=== PATIENT | female | born 1960 | race Caucasian/White ===

== ENCOUNTER 2023-04-02 10:32 | Inpatient (IN) | payer MEDICARE, MEDICAID ==
[~2023-04-02] VITALS: Ht 157 cm; Wt 64.6 kg
--- NOTE | 2023-04-02 10:56 | ED General ---
General Chief Complaint: Cardiac/General Problems Stated Complaint: FLUCTUATING PULSES Nursing Triage Note: ARRIVED VIA WC FROM [facility]. CONCERNS WITH PULSE WILL GO FROM THE 40-70'S. RECENT ADMIT TO [facility] FOR SEPSIS. Source of Information: Patient, Fdc Records, Other ([facility] attendant) Exam Limitations: Physical Impairments History of Present Illness Date Seen by Provider: Apr 02, 2023 Time Seen by Provider: 10:48 Initial Comments Here with senior care manager who reports that the patient was admitted at [facility] last week from approximately Monday to Monday. She is admitted for concerns for sepsis and low temperature. Later they thought that this was not s epsis. platform attendant is worried because patient's heart rate has fluctuated between 40s and 70s and she feels cool to the touch. She appears weaker than normal although better now than she was earlier last week. She is a resident of [facility]. She is currently on Bactrim DS for question of urinary tract infection. She was having some urinary tract problems and was started on b ethanechol and tamsulosin and those are new meds for her. She has an extensive medication list. Patient is nonverbal due to MR. She is certainly moving her upper extremities well and it is picking at the blood pressure cuff and pulse oximeter lungs., Fever, breathing problems or other visual findings of pain per care worker. Timing/Duration: 1 Week, Changing Over Time, Getting Worse Severity: Moderate Associated Systoms: No Cough, No Nausea/Vomiting, No Shortness of Air Allergies and Home Medications Allergies Coded Allergies: No Known Drug Allergies (Unverified , 04/02/23) Patient Home Medication List Home Medication List Reviewed: Yes Review of Systems Review of Systems Constitutional: see HPI Review of systems limited due to patient's MR status and symptoms noted per care worker Past Rkufrwf-Moorhn-Wdlpnp Hx Patient Social History Tobacco Use?: No Substance use?: No Alcohol Use?: No Past Medical History Surgeries: Yes Abdominal (PEG tube) Respiratory: Yes Pneumonia Cardiac: Yes Coronary Artery Disease, Hypertension, Irregular Heartbeat Neurological: Yes (Rett syndrome) Genitourinary: Yes UTI-Chronic Gastrointestinal: Yes Gastroesophageal Reflux, Pancreatitis, Hepatitis, Ulcer Anxiety Integumentary: Yes (Plantar warts of the foot, onychomycosis) Psoriasis Family Medical History Reviewed and Corrections made No Pertinent Family Hx Physical Exam-Suspected Sepsis Physical Exam Vital Signs Vital Signs - First Documented 04/02/23 10:41 Temp 31.8 Pulse 56 Resp 16 B/P (MAP) 94/63 (73) Pulse Ox 96 O2 Delivery Room Air Capillary Refill : Less Than 3 Seconds Blood Pressure Mean: 73 Height, Weight, BMI Height: '" Weight: lbs. oz. kg; 27.00 BMI Method: General Appearance: No Apparent Distress, Other (Picking at lines. Bruising noted to the left side of the face) HEENT: PERRL/EOMI, Pharynx Normal Neck: Non Tender, Supple Respiratory: Lungs Clear, Normal Breath Sounds Cardiovascular: No Murmur, Bradycardia Gastrointestinal: Non Tender, Soft Back: Normal Inspection, No CVA Tenderness, No Vertebral Tenderness Extremity: Normal Range of Motion, Non Tender Neurologic/Psychiatric: Alert, Other (Weak for senior care manager but a little better than last week) Skin: cool, ecchymosis (Side of face), pallor Focused Exam Lactate Level 04/02/23 10:55: Lactic Acid Level 1.64 Lactic Acid Level Laboratory Tests Test 04/02/23 10:55 Lactic Acid Level 1.64 MMOL/L (0.50-2.00) Progress/Results/Core Measures Suspected Sepsis SIRS Temperature: Pulse: 56 Respiratory Rate: 16 Laboratory Tests 04/02/23 10:55: White Blood Count 2.9L Blood Pressure 94 /63 Mean: 73 04/02/23 10:55: Lactic Acid Level 1.64 Laboratory Tests 04/02/23 10:55: Creatinine 0.80, INR Comment 1.0, Platelet Count 123L, Total Bilirubin 0.2 Results/Orders Lab Results Laboratory Tests Test 04/02/23 10:55 04/02/23 11:08 Range/Units White Blood Count 2.9 L 4.3-11.0 10^3/uL Red Blood Count 3.11 L 3.80-5.11 10^6/uL Hemoglobin 10.0 L 11.5-16.0 g/dL Hematocrit 31 L 35-52 % Mean Corpuscular Volume 100 H 80-99 fL Mean Corpuscular Hemoglobin 32 25-34 pg Mean Corpuscular Hemoglobin Concent 32 32-36 g/dL Red Cell Distribution Width 14.0 10.0-14.5 % Platelet Count 123 L 130-400 10^3/uL Mean Platelet Volume 11.6 9.0-12.2 fL Immature Granulocyte % (Auto) 1 % Neutrophils (%) (Auto) 56 42-75 % Lymphocytes (%) (Auto) 31 12-44 % Monocytes (%) (Auto) 10 0-12 % Eosinophils (%) (Auto) 2 0-10 % Basophils (%) (Auto) 0 0-10 % Neutrophils # (Auto) 1.6 L 1.8-7.8 10^3/uL Lymphocytes # (Auto) 0.9 L 1.0-4.0 10^3/uL Monocytes # (Auto) 0.3 0.0-1.0 10^3/uL Eosinophils # (Auto) 0.1 0.0-0.3 10^3/uL Basophils # (Auto) 0.0 0.0-0.1 10^3/uL Immature Granulocyte # (Auto) 0.0 0.0-0.1 10^3/uL Percent Immature Platelet Fraction 9.4 H 0.0-7.6 % Prothrombin Time 12.9 12.2-14.7 SEC INR Comment 1.0 0.8-1.4 Activated Partial Thromboplast Time 39 H 24-35 SEC Sodium Level 136 135-145 MMOL/L Potassium Level 4.5 3.6-5.0 MMOL/L Chloride Level 102 98-107 MMOL/L Carbon Dioxide Level 25 21-32 MMOL/L Anion Gap 9 5-14 MMOL/L Blood Urea Nitrogen 23 H 7-18 MG/DL Creatinine 0.80 0.60-1.30 MG/DL Estimat Glomerular Filtration Rate 84 BUN/Creatinine Ratio 29 Glucose Level 97 70-105 MG/DL Lactic Acid Level 1.64 0.50-2.00 MMOL/L Calcium Level 10.5 H 8.5-10.1 MG/DL Corrected Calcium 10.7 H 8.5-10.1 MG/DL Magnesium Level 2.1 1.6-2.4 MG/DL Total Bilirubin 0.2 0.1-1.0 MG/DL Aspartate Amino Transf (AST/SGOT) 90 H 5-34 U/L Alanine Aminotransferase (ALT/SGPT) 103 H 0-55 U/L Alkaline Phosphatase 238 H 40-136 U/L C-Reactive Protein High Sensitivity 3.92 H 0.00-0.50 MG/DL Total Protein 7.6 6.4-8.2 GM/DL Albumin 3.7 3.2-4.5 GM/DL Urine Color YELLOW Urine Clarity CLEAR Urine pH 6.0 5-9 Urine Specific Ehrenberg 1.015 L 1.016-1.022 Urine Protein NEGATIVE NEGATIVE Urine Glucose (UA) NEGATIVE NEGATIVE Urine Ketones NEGATIVE NEGATIVE Urine Nitrite NEGATIVE NEGATIVE Urine Bilirubin NEGATIVE NEGATIVE Urine Urobilinogen 0.2 < = 1.0 MG/DL Urine Leukocyte Esterase 1+ H NEGATIVE Urine RBC (Auto) TRACE H NEGATIVE Urine RBC 0-2 /HPF Urine WBC 10-25 H /HPF Urine Squamous Epithelial Cells 0-2 /HPF Urine Crystals NONE /LPF Urine Bacteria LARGE H /HPF Urine Casts NONE /LPF Urine Mucus NEGATIVE /LPF Urine Culture Indicated CULTURE PENDING My Orders Orders - SAURABH PLEITEZ MD Cbc With Automated Diff (04/02/23 10:53) Comprehensive Metabolic Panel (04/02/23 10:53) Blood Culture (04/02/23 10:53) Sputum Culture (04/02/23 10:53) Urinalysis (04/02/23 10:53) Urine Culture (04/02/23 10:53) Protime With Inr (04/02/23 10:53) Partial Thromboplastin Time (04/02/23 10:53) Chest 1 View, Ap/Pa Only (04/02/23 10:53) Ed Iv/Invasive Line Start (04/02/23 10:53) Vital Signs Adult Sepsis Patie Q15M (04/02/23 10:53) O2 (04/02/23 10:53) Remove Rings In Anticipation O (04/02/23 10:53) Lactic Acid Analyzer (04/02/23 10:53) Straight Cath For Spec.-Adult (04/02/23 10:53) Hs C Reactive Protein (04/02/23 10:53) Magnesium (04/02/23 10:53) Ns Iv 1000 Ml (Ns Iv 1000 Ml) (04/02/23 11:15) Meropenem Injection (Meropenem Injecti (04/02/23 12:15) Vancomycin Injection (Vancomycin Injecti (04/02/23 12:15) Vancomycin Injection (Vancomycin Injecti (04/02/23 13:15) Medications Given in ED Current Medications Medications Dose Ordered Sig/Karen Route Start Time Stop Time Status Last Admin Dose Admin Sodium Chloride 1,000 ml @ 0 mls/hr Q0M ONCE IV 04/02/23 11:15 04/02/23 11:16 DC 04/02/23 11:34 1,000 MLS/HR Vital Signs/I&O 04/02/23 10:41 Temp 31.8 Pulse 56 Resp 16 B/P (MAP) 94/63 (73) Pulse Ox 96 O2 Delivery Room Air Capillary Refill : Less Than 3 Seconds Blood Pressure Mean: 73 Progress Note : Progress Note Seen and evaluated. Patient's temperature noted to be 89 F. We will initiate sepsis protocol including IV, labs including CBC, CMP, CRP, blood cultures and lactic acid as well as coags. We will get UA via Cardozo catheter and placed temperature-sensing device in rectum and apply Chacho hugger. Normal saline 1 L bolus warm ordered.. Differential diagnosis includes sepsis, UTI, medication effect, electrolyte abnormality, dehydration 039: Chest x-ray reviewed and shows no obvious infiltrate on my interpretation. See radiology report for details. CBC reviewed and shows white count low at 2.9 and platelets slightly low at 123 with slightly low hemoglobin at 10. Coags show slightly elevated PTT. Chemistry shows grossly normal electrolytes except calcium is slightly elevated. LFTs are elevated and patient does have history of hepatitis. CRP is elevated at 3.3 and magnesium is normal. UA does show 10- 25 whites with large bacteria on Cardozo catheter sample. Lactic acid is negative at 1.64. Blood pressure remains reasonable at 110/64. Given patient's temperature, admission is indicated and this may be urinary tract infection and mixed medication effect. We will continue IV fluids and initiate admission proceedings. Monitor patient. 1155: I did [facility] the [facility] She accepts patient for admission to the ICU, inpatient status. We will initiate meropenem 500 mg IV and vancomycin weight- based dosing now and she will continue that in the ICU. Patient's temperature is, up to 32 C with Chacho hugger now. She is receiving her liter of fluid and blood pressure is currently 111/61. I did discuss with senior care manager who agrees. Admit, inpatient status. platform attendant agrees to plan. He did bring tube feeding supplies and initial feed. Patient does have findings for UTI there are some findings of sepsis but she does not have severe sepsis or septic shock and does not require high-volume fluid resuscitation at this time and does have history of CHF. Diagnostic Imaging Diagonstic Imaging: Xray Plain Films/CT/US/NM/MRI: chest Comments [facility] [place], [place] NAME: VANDANA FLEMING [facility] REC#: [id number] PT STATUS: REG ER : 1960 PHYSICIAN: SAURABH PLEITEZ MD ADMIT DATE: 04/02/23/ER Draft Date of Exam:04/02/23 CHEST 1 VIEW, AP/PA ONLY EXAMINATION: Chest 1 view HISTORY: Hypothermia, weak COMPARISON: None available. FINDINGS: There is mild left base atelectasis. Otherwise, the lungs are clear without edema or pneumonia. No pleural effusion or pneumothorax. Heart size is normal. IMPRESSION: 1. Mild atelectasis, otherwise clear lungs. Dictated on workstation # [id number] Dict: 04/02/23 1127 Trans: 04/02/23 1128 [facility] [id number] Interpreted by: MIMA ELDER MD Electronically signed by: Departure Communication (Admissions) Time/Spoke to Admitting Phy: 11:55 Impression Primary Impression: Hypothermia Qualified Codes: T68.XXXA - Hypothermia, initial encounter Additional Impression: Urinary tract infection Qualified Codes: N30.01 - Acute cystitis with hematuria Disposition: ADMITTED INPATIENT Condition: Stable Admissions Decision to Admit Reason: Admit from ER (General) Decision to Admit/Date: Apr 02, 2023 Time/Decision to Admit Time: 11:55 Departure-Patient Inst. Referrals: BRANT FAULKNER NP (PCP) Primary Care Physician SAURABH PLEITEZ MD Apr 02, 2023 10:56
[2023-04-02] MEDS ORDERED: NS IV 1000 ML 1,000 ML IV ONE (11:15)
[2023-04-02 11:17] LABS: BILIRUBIN,URINE NEGATIVE (NEGATIVE); CLARITY,URINE CLEAR; COLOR,URINE YELLOW; GLUCOSE, URINE (UA) NEGATIVE (NEGATIVE); KETONES,URINE NEGATIVE (NEGATIVE); LEUKOCYTE ESTERASE ,URINE 1+ (NEGATIVE); NITRITE,URINE NEGATIVE (NEGATIVE); PROTEIN,URINE NEGATIVE (NEGATIVE)
[2023-04-02 11:18] LABS: MONOCYTES # (AUTO) 0.3 10^3/uL (0.0-1.0)
[2023-04-02 11:20] LABS: BASOPHILS % (AUTO) 0 % (0-10); EOSINOPHILS # (AUTO) 0.1 10^3/uL (0.0-0.3); EOSINOPHILS % (AUTO) 2 % (0-10); HEMATOCRIT 31 % (35-52); LYMPHOCYTES # (AUTO) 0.9 10^3/uL (1.0-4.0); LYMPHOCYTES % (AUTO) 31 % (12-44); MEAN CORPUSCULAR HEMOGLOBIN 32 pg (25-34); MEAN CORPUSCULAR HGB CONC 32 g/dL (32-36); MEAN CORPUSCULAR VOLUME 100 fL (80-99); MEAN PLATELET VOLUME 11.6 fL (9.0-12.2); MONOCYTES % (AUTO) 10 % (0-12); NEUTROPHILS # (AUTO) 1.6 10^3/uL (1.8-7.8); NEUTROPHILS % (AUTO) 56 % (42-75); PLATELET COUNT 123 10^3/uL (130-400); WHITE BLOOD COUNT 2.9 10^3/uL (4.3-11.0)
[2023-04-02 11:23] LABS: BACTERIA,URINE LARGE /HPF; RBC,URINE 0-2 /HPF; SQUAMOUS EPITHELIAL CELL,UR 0-2 /HPF
[2023-04-02 11:26] LABS: PROTHROMBIN TIME PATIENT 12.9 SEC (12.2-14.7)
--- NOTE | 2023-04-02 11:28 | Diagnostic Imaging Report ---
EXAMINATION: Chest 1 view HISTORY: Hypothermia, weak COMPARISON: None available. FINDINGS: There is mild left base atelectasis. Otherwise, the lungs are clear without edema or pneumonia. No pleural effusion or pneumothorax. Heart size is normal. IMPRESSION: 1. Mild atelectasis, otherwise clear lungs. Dictated by: Dictated on workstation # [id number]
[2023-04-02 11:31] LABS: ALBUMIN 3.7 GM/DL (3.2-4.5); BILIRUBIN,TOTAL 0.2 MG/DL (0.1-1.0); CALCIUM 10.5 MG/DL (8.5-10.1); CREATININE SERUM 0.8 MG/DL (0.60-1.30); MAGNESIUM 2.1 MG/DL (1.6-2.4); POTASSIUM 4.5 MMOL/L (3.6-5.0); TOTAL PROTEIN 7.6 GM/DL (6.4-8.2)
--- NOTE | 2023-04-02 12:04 | History & Physical-Hospitalist ---
History of Present Illness HPI/Chief Complaint Chief complaint: Hypothermia suspect sepsis from pneumonia and UTI HPI: This is a 62-year-old female intellectually delayed patient who receives G- tube feedings and is significantly debilitated due to disability who presented to the ER with altered mental status. Apparently she was just discharged from [facility] and was placed on empiric antibiotics and remained on Bactrim DS but UA shows 1020 WBCs and chest x-ray shows bilateral atelectasis suspicious for pneumonia so she was placed on meropenem and vancomycin and placed in the ICU with a bear hugger due to hypothermia. Source: patient Exam Limitations: no limitations Date Seen 04/02/23 Time Seen by a Provider: 12:30 Attending Physician Bonilla Maria Np PCP Admitting Physician: Attending Physician: Referring Physician Date of Admission Home Medications & Allergies Home Medications Reviewed patient Home Medication Reconciliation performed by pharmacy medication reconciliations fire protection equipment technician and/or nursing. Patients Allergies have been reviewed. Allergies Allergies Coded Allergies No Known Drug Allergies (Unverified04/02/23) Past Cmxlsbj-Ryuple-Nlqxtf Hx Patient Social History Marrital Status: single Employed/Student: unemployed Tobacco Use?: No Smoking Status: Never a Smoker Substance use?: No Alcohol Use?: No Current Status status: No Advance Directives: No Communicates: Does Not Communicate Primary Language: Maltese Preferred Spoken Language: Maltese Past Medical History Surgeries: Abdominal (PEG tube) Pneumonia Coronary Artery Disease, Hypertension, Irregular Heartbeat UTI-Chronic Gastroesophageal Reflux, Pancreatitis, Hepatitis, Ulcer Anxiety Psoriasis Family Medical History Reviewed and Corrections made No Pertinent Family Hx Review of Systems ROS-Unable to Obtain: Confusion Constitutional: see HPI, malaise Physical Exam Physical Exam Vital Signs Vital Signs - First Documented 04/02/23 10:41 Temp 31.8 Pulse 56 Resp 16 B/P (MAP) 94/63 (73) Pulse Ox 96 O2 Delivery Room Air Capillary Refill : Less Than 3 Seconds Height, Weight, BMI Height: '" Weight: lbs. oz. kg; 27.00 BMI Method: General Appearance: No Apparent Distress, Chronically ill, Obese Respiratory: No Accessory Muscle Use, No Respiratory Distress, Decreased Breath Sounds Cardiovascular: Regular Rate, Rhythm Neurologic/Psychiatric: Alert Results Results/Procedures Labs Laboratory Tests 04/02/23 10:55 Patient resulted labs reviewed. Assessment/Plan Admission Diagnosis Assessment: Hypothermia Suspicious for sepsis from UTI and bilateral pneumonia Severe intellectual delay disability Plan: ICU IV antibiotics IV fluid Supportive care ICU consult Admission Status: Inpatient Order (span 2 midnights) Reason for Inpatient Admission: hypothermia from sepsis KIRT WOODSON DO Apr 02, 2023 12:04
[2023-04-02] MEDS ORDERED: VANCOMYCIN INJECTION 750 MG in NS (IVPB) 100 ML 100 ML IV ONE (12:15)
[2023-04-02] MEDS ORDERED: MEROPENEM INJECTION 500 MG in NS (IVPB) 100 ML 100 ML IV ONE (12:15)
[2023-04-02] MEDS ORDERED: VANCOMYCIN INJECTION 500 MG in NS (IVPB) 100 ML 100 ML IV ONE (13:15)
[2023-04-02] MEDS ORDERED: CALCIUM CARBONATE 500 MG CHEW TABLET PO PRN (13:30)
[2023-04-02] MEDS ORDERED: ONDANSETRON 4 MG ORAL DISSOLVE TABLET PO PRN (13:30)
[2023-04-02] MEDS ORDERED: diphenhydrAMINE INJ 50 MG/ML VIAL IVP PRN (13:30)
[2023-04-02] MEDS ORDERED: MELATONIN 3 MG TABLET PO PRN (13:30)
[2023-04-02] MEDS ORDERED: LACTULOSE SYRUP 10GM/15ML 30ML UDC PO PRN (13:30)
[2023-04-02] MEDS ORDERED: BISACODYL 10 MG SUPPOSITORY PR PRN (13:30)
[2023-04-02] MEDS ORDERED: diphenhydrAMINE 25 MG TABLET PO PRN (13:30)
[2023-04-02] MEDS ORDERED: NS IV 500 ML 500 ML IV PRN (13:30)
[2023-04-02] MEDS ORDERED: VANCOMYCIN INJECTION 0.1 MG in NS (IVPB) 250 ML 250 ML IV SCH (13:30)
[2023-04-02] MEDS ORDERED: ANTACID SUSPENSION 30 ML UDC PO PRN (13:30)
[2023-04-02] MEDS ORDERED: oxyCODONE IMMEDIATE RELEASE 5 MG TABLET PO PRN (13:30)
[2023-04-02] MEDS ORDERED: morphine INJ 4 MG/ML 1 ML (VIAL/SYRINGE) IV PRN (13:30)
[2023-04-02] MEDS ORDERED: ONDANSETRON INJECTION 4 MG/2 ML (SDV) IV PRN (13:30)
[2023-04-02] MEDS ORDERED: MILK OF MAGNESIA 400 MG/5 ML 30 ML UDC PO PRN (13:30)
[2023-04-02] MEDS: ENOXAPARIN 40 MG/0.4 ML SYRINGE SC SCH (13:43)
[2023-04-02] MEDS: NS IV 1000 ML 1,000 ML IV SCH ×2 (13:43→21:48)
--- NOTE | 2023-04-02 14:18 | Tele-ICU Consult ---
History of Present Illness History of Present Illness Date Seen by Provider: Apr 02, 2023 Time Seen by Provider: 14:18 Date of Admission History of Present Illness (Tele-ICU Physician , consultation as per request of PCP Service provided via interactive audio and video telecommunLivrada E-CARE system to a patient admitted to ICU bed in [facility]. Available chart/ vitals / labs / Images reviewed H&P is from ER notes Patient's information available about PMH, Shx, Fhx allergy reviewed inEMR. ROS as per chart and RN report Now in ICU, hemodynamically stable Video assessment done using teleICU camera, rest of exam as per RN Discussed with RN. Hospital course: (04/02) 62F with intellectual disability admitted for UTI. Had been at [facility] for sepsis then DC on Bactrim for UTI. Caregiver concerned about fever, and HR fluctuations. Hypothermia, elevated LFT> no organ dysfunction on admit. Baseline neuro awake/alert but non verbal A/P Hypothemia - Chacho jakegger , follow closely - order TSH, and might need costisol level if reminds hypothermic Elevated LFT - ? abd exam wnl as per ER notes , ? BArctim side effect UTI suspected - WBC and + bact with minimal esterase-- on CATHETER obtaind sample , s/p recent Tx - vanco and merrem initiated in ER Anemia - mild - no active bleeding , follow PEg in place cont keppra as CLINICAL INFORMATICS PHYSICIAN doses Lines : periph , (Central Line Necessity Reviewed) Cardozo: + OG: Nutrition: Analgesia: Anxiety/ delirium VTE Prophylaxis: ever 40 Stress Ulcer Prophylaxis: Plans in collaboration with bedside consultants and IM MDs. Discussed with RN to reach out if any questions or concerns A total of 25 minutes of critical care time was devoted to this patient today, required to treat and/or prevent further deterioration of critical care condition ( as above ) . I am remotely monitoring this patient from another state. I am unable to do the bedside exam, and history/physical and pertinent information is taken from other notes in the computer and bedside staff. . Allergies and Home Medications Allergies Coded Allergies: No Known Drug Allergies (Unverified , 04/02/23) Past Medical/Social/Family Hx Patient Social History Tobacco Use?: No Substance use?: No Alcohol Use?: No Current Status status: No Advance Directives: No Communicates: Does Not Communicate Primary Language: Guamanian Preferred Spoken Language: Guamanian Review of Systems Constitutional: other Focused Exam Possible Source: Other Lactate Level 04/02/23 10:55: Lactic Acid Level 1.64 Height, Weight, BMI Height: '" Weight: lbs. oz. kg; 27.00 BMI Method: Lactic Acid Level Laboratory Tests Test 04/02/23 10:55 Lactic Acid Level 1.64 MMOL/L (0.50-2.00) Exam Exam Patient acknowledged, consented, and participated in this virtual visit which was conducted using real time audio/video Vital Signs Date Time Temp Pulse Resp B/P (MAP) Pulse Ox O2 Delivery O2 Flow Rate FiO2 04/02/23 13:46 Room Air 04/02/23 13:23 72 04/02/23 13:15 34.2 68 12 131/58 (82) Room Air 04/02/23 12:50 33.6 71 16 123/76 100 Room Air 04/02/23 10:41 31.8 56 16 94/63 (73) 96 Room Air Height & Weight Height: '" Weight: lbs. oz. kg; 27.00 BMI Method: General Appearance: No Apparent Distress, Other (Picking at lines. Bruising noted to the left side of the face) HEENT: PERRL/EOMI, Pharynx Normal Neck: Non Tender, Supple Respiratory: Lungs Clear, Normal Breath Sounds Cardiovascular: No Murmur, Bradycardia Capillary Refill: Less Than 3 Seconds Extremity: Normal Range of Motion, Non Tender Neurologic/Psychiatric: Alert, Other (Weak for day care supervisor but a little better than last week) Results Lab Laboratory Tests 04/02/23 10:55 Assessment/Plan Assessment/Plan 1 NIELS LORA MD Apr 02, 2023 14:18
[2023-04-02] MEDS: LevETIRAcetam 500 MG/ 5 ML UDC ORAL SOLN PEG SCH ×2 (15:11→20:04)
[2023-04-02 15:13] VITALS: BP 110/62
[2023-04-02] MEDS ORDERED: TMSL.4C PEG (16:32)
[2023-04-02] MEDS ORDERED: QUET200T29 GT (16:32)
[2023-04-02] MEDS ORDERED: ASPI-999 GT (16:32)
[2023-04-02] MEDS ORDERED: LORA-405 PEG (16:32)
[2023-04-02] MEDS ORDERED: ARIP2TAB20 GT (16:32)
[2023-04-02] MEDS ORDERED: TRZ50T GT (16:32)
[2023-04-02] MEDS ORDERED: LORA-405 GT ×2 (16:32)
[2023-04-02] MEDS ORDERED: MTC5V480 GT (16:32)
[2023-04-02] MEDS ORDERED: LISI20TA26 GT (16:32)
[2023-04-02] MEDS ORDERED: [UNRECOGNIZED DRUG - CODE] PEG (16:32)
[2023-04-02] MEDS ORDERED: FRSM10B60 GT (16:32)
[2023-04-02] MEDS ORDERED: TMSL.4C GT (16:32)
[2023-04-02] MEDS ORDERED: RISP1TAB93 GT (16:32)
[2023-04-02] MEDS ORDERED: TIZA-186 GT (16:32)
[2023-04-02] MEDS ORDERED: QUET50TA23 GT (16:32)
[2023-04-02] MEDS ORDERED: BETH25TA2 GT (16:32)
[2023-04-02] MEDS: inSUlin ASPART 1 UNIT/0.01 ML (PER UNIT) SC SCH ×2 (16:40→20:05)
[2023-04-02] MEDS: MEROPENEM INJECTION 500 MG in NS (IVPB) 100 ML 100 ML IV SCH ×2 (18:14→23:49)
[2023-04-02] MEDS: SENNOSIDES 8.6 MG TABLET PO SCH (20:04)
[2023-04-02] MEDS: ACETAMINOPHEN 325 MG TABLET PO PRN (20:04)
[2023-04-02] MEDS: DOCUSATE SODIUM 100 MG CAPSULE PO SCH (20:06)
[2023-04-02] MEDS ORDERED: RT-Ipratropium/Albuterol NEB 3 ML VIAL INH PRN (21:30)
[2023-04-02] MEDS: VANCOMYCIN 1 GM/NS 250 ML IVPB IV SCH ×2 (21:54)
[2023-04-03 05:02] LABS: BASOPHILS % (AUTO) 0 % (0-10); EOSINOPHILS % (AUTO) 1 % (0-10); HEMATOCRIT 31 % (35-52); HEMOGLOBIN 9.9 g/dL (11.5-16.0); LYMPHOCYTES # (AUTO) 0.9 10^3/uL (1.0-4.0); LYMPHOCYTES % (AUTO) 15 % (12-44); MEAN CORPUSCULAR HEMOGLOBIN 32 pg (25-34); MEAN CORPUSCULAR HGB CONC 32 g/dL (32-36); MEAN CORPUSCULAR VOLUME 100 fL (80-99); MEAN PLATELET VOLUME 11.3 fL (9.0-12.2); MONOCYTES # (AUTO) 0.5 10^3/uL (0.0-1.0); MONOCYTES % (AUTO) 9 % (0-12); NEUTROPHILS # (AUTO) 4.6 10^3/uL (1.8-7.8); NEUTROPHILS % (AUTO) 76 % (42-75); PLATELET COUNT 156 10^3/uL (130-400); WHITE BLOOD COUNT 6.1 10^3/uL (4.3-11.0)
[2023-04-03] MEDS: NS IV 1000 ML 1,000 ML IV SCH (05:08)
[2023-04-03 05:25] LABS: ALBUMIN 3.5 GM/DL (3.2-4.5); BILIRUBIN,TOTAL 0.2 MG/DL (0.1-1.0); CALCIUM 9.7 MG/DL (8.5-10.1); CREATININE SERUM 0.82 MG/DL (0.60-1.30); MAGNESIUM 1.9 MG/DL (1.6-2.4); PHOSPHORUS 2.7 MG/DL (2.3-4.7); POTASSIUM 5.4 MMOL/L (3.6-5.0); TOTAL PROTEIN 7.2 GM/DL (6.4-8.2)
[2023-04-03] MEDS: inSUlin ASPART 1 UNIT/0.01 ML (PER UNIT) SC SCH ×4 (05:43→21:00)
[2023-04-03] MEDS: MAGNESIUM 1 GM/100 ML IVPB 100 ML IV SCH (05:53)
[2023-04-03] MEDS: MEROPENEM INJECTION 500 MG in NS (IVPB) 100 ML 100 ML IV SCH ×3 (05:54→17:52)
[2023-04-03] MEDS ORDERED: POTASSIUM CHLORIDE 20 MEQ TABLET PO SCH (06:00)
[2023-04-03] MEDS ORDERED: POTASSIUM CL 10MEQ/50ML IVPB 50 ML IV SCH (06:00)
[2023-04-03] MEDS ORDERED: MAGNESIUM 1 GM/100 ML IVPB 100 ML IV SCH (06:00)
--- NOTE | 2023-04-03 07:08 | Progress Note - Hospitalist ---
Subjective HPI/CC On Admission Date Seen by Provider: Apr 03, 2023 Time Seen by Provider: 10:00 Chief complaint: Hypothermia suspect sepsis from pneumonia and UTI HPI: This is a 62-year-old female intellectually delayed patient who receives G- tube feedings and is significantly debilitated due to disability who presented t o the ER with altered mental status. Apparently she was just discharged from [facility] and was placed on empiric antibiotics and remained on Bactrim DS but UA shows 1020 WBCs and chest x-ray shows bilateral atelectasis suspicious for pneumonia so she was placed on meropenem and vancomycin and placed in the ICU with a bear hugger due to hypothermia. Subjective/Events-last exam Much improved status No hypothermia CXR reviewed NO falls TF tolerated Move to 4th Focused Exam Lactate Level 04/02/23 10:55: Lactic Acid Level 1.64 Objective Exam Vital Signs Vital Signs Date Time Temp Pulse Resp B/P (MAP) Pulse Ox O2 Delivery O2 Flow Rate FiO2 04/03/23 15:36 37.4 04/03/23 15:00 80 30 142/71 (94) 94 Room Air 04/03/23 08:11 2.00 Capillary Refill : Less Than 3 Seconds General Appearance: No Apparent Distress, WD/WN, Chronically ill, Other (severe MR) Respiratory: Lungs Clear, Normal Breath Sounds, Decreased Breath Sounds Cardiovascular: Regular Rate, Rhythm Neurologic/Psychiatric: Alert Results/Procedures Lab Laboratory Tests 04/03/23 04:12 Patient resulted labs reviewed. Assessment/Plan Assessment and Plan Assess & Plan/Chief Complaint Assessment: Hypothermia Suspicious for sepsis from UTI and bilateral pneumonia Severe intellectual delay disability Plan: Move to 4th IV antibiotics IV fluid Supportive care KIRT WOODSON DO Apr 03, 2023 07:08
[2023-04-03] MEDS: RT-Ipratropium/Albuterol NEB 3 ML VIAL INH SCH ×2 (08:11→19:19)
[2023-04-03] MEDS: SENNOSIDES 8.6 MG TABLET PO SCH ×2 (08:53→20:11)
[2023-04-03] MEDS: DOCUSATE SODIUM 100 MG CAPSULE PO SCH ×2 (08:53→20:10)
[2023-04-03] MEDS: LevETIRAcetam 500 MG/ 5 ML UDC ORAL SOLN PEG SCH ×3 (08:54→20:11)
--- NOTE | 2023-04-03 09:51 | Tele-ICU Progress Note ---
Subjective Date Seen by a Provider: Apr 03, 2023 Time Seen by a Provider: 09:50 Subjective/Events-last exam (Tele-ICU Physician , Progress Note ) Service provided via interactive audio and video telecommunications E-CARE system to a patient admitted to ICU bed in [facility]. Patient is seen today due to persistent need of ICU care Available chart/ vitals / labs / Images reviewed Video assessment done using teleICU camera, rest of exam as per RN Discussed with RN Events overnight : Afebrile hemodynamically stable Respiratory - I/O = neg Drips: ns Pressors- no Hospital course: (04/02) 62F with intellectual disability admitted for UTI. Had been at [facility] for sepsis then DC on Bactrim for UTI. Caregiver concerned about fever, and HR fluctuations. Hypothermia, elevated LFT> no organ dysfunction on admit. Baseline neuro awake/alert but non verbal A/P Hypothemia - Chacho baker , follow closely - hypothyroid with TSH =10 - future w/up and tx as per PCP . and might need costisol level if reminds hypothermic Elevated LFT - ? abd exam wnl as per ER notes , ? BArctim side effect - stable today UTI suspected - WBC and + bact with minimal esterase-- on CATHETER obtaind sample , s/p recent Tx - vanco and merrem initiated in ER - E-coli + SENS PENDING Anemia - mild - no active bleeding , follow PEG in place cont keppra as [employer] doses Lines : periph , (Central Line Necessity Reviewed) [place]ozo: + OG: Nutrition: Analgesia: Anxiety/ delirium VTE Prophylaxis: ever 40 Stress Ulcer Prophylaxis: Plans in collaboration with bedside consultants and IM MDs. Discussed with RN to reach out if any questions or concerns A total of 25 minutes of critical care time was devoted to this patient today, required to treat and/or prevent further deterioration of critical care condition ( as above ) . I am remotely monitoring this patient from another state. I am unable to do the bedside exam, and history/physical and pertinent information is taken from other notes in the computer and bedside staff. . Sepsis Event Evaluation Height, Weight, BMI Height: '" Weight: lbs. oz. kg; 27.58 BMI Method: Focused Exam Lactate Level 04/02/23 10:55: Lactic Acid Level 1.64 Exam Exam Patient acknowledged, consented, and participated in this virtual visit which was conducted using real time audio/video Vital Signs Date Time Temp Pulse Resp B/P (MAP) Pulse Ox O2 Delivery O2 Flow Rate FiO2 04/03/23 09:00 37.2 82 22 147/83 (104) 97 Room Air 04/03/23 08:11 96 Nasal Cannula 2.00 04/03/23 08:00 37.2 89 20 142/70 (94) 97 Room Air 04/03/23 07:09 85 04/03/23 07:00 37.2 89 17 164/90 (114) 95 Room Air 04/03/23 06:45 37.2 84 15 131/80 (99) 98 Room Air 04/03/23 06:30 37.1 81 15 128/64 (91) 98 Room Air 04/03/23 06:15 37.1 87 18 116/62 (71) 97 Room Air 04/03/23 06:00 37 86 20 124/62 (74) 97 Room Air 04/03/23 05:45 37 89 14 124/74 (107) 98 Room Air 04/03/23 05:30 37 84 18 146/76 (99) 97 Room Air 04/03/23 05:15 37.1 91 21 149/81 (99) 97 Room Air 04/03/23 05:00 37.1 84 10 138/73 (111) 98 Room Air 04/03/23 04:45 37.0 84 11 132/81 (107) 97 Room Air 04/03/23 04:30 37.1 84 17 140/74 (88) 98 Room Air 04/03/23 04:16 Room Air 04/03/23 04:15 37.1 86 19 132/71 (99) 97 Room Air 04/03/23 04:00 37.1 86 18 129/77 (93) 97 Room Air 04/03/23 03:45 37.1 85 19 128/82 (99) 96 Room Air 04/03/23 03:30 37.1 90 24 125/75 (94) 96 Room Air 04/03/23 03:15 37.1 92 20 122/73 (91) 94 Room Air 04/03/23 03:00 37.1 89 20 129/73 (99) 94 Room Air 04/03/23 02:45 37.2 92 35 129/77 (98) 96 Room Air 04/03/23 02:30 37.1 91 15 132/78 (106) 95 Room Air 04/03/23 02:15 37.1 93 21 123/71 (94) 91 Room Air 04/03/23 02:00 37.1 96 20 125/89 (106) 96 Room Air 04/03/23 01:45 37.1 96 17 127/72 (100) 96 Room Air 04/03/23 01:30 37.1 88 20 124/73 (97) 96 Room Air 04/03/23 01:15 37 96 17 141/78 (103) 94 Room Air 04/03/23 01:00 37 97 20 141/73 (83) 94 Room Air 04/03/23 01:00 97 04/03/23 00:45 37 98 20 124/68 (103) 93 Room Air 04/03/23 00:30 37 100 20 125/76 (90) 96 Room Air 04/03/23 00:15 37 97 18 130/87 (117) 96 Room Air 04/03/23 00:00 36.9 98 18 127/69 (89) 94 Room Air 04/02/23 23:55 Room Air 04/02/23 23:45 37 98 20 139/78 (96) 95 Room Air 04/02/23 23:30 37 101 18 118/67 (85) 93 Room Air 04/02/23 23:15 37 101 18 122/69 (98) 94 Room Air 04/02/23 23:00 37.1 101 18 124/71 (84) 93 Room Air 04/02/23 22:45 37 105 114/66 (84) 90 Room Air 04/02/23 22:30 37 102 23 108/70 (87) 90 Room Air 04/02/23 22:15 37 101 25 103/91 (98) 90 Room Air 04/02/23 22:00 37 103 18 118/75 (91) 91 Room Air 04/02/23 21:45 36.9 101 19 136/71 (99) Room Air 04/02/23 21:30 36.9 101 15 134/85 (96) Room Air 04/02/23 21:15 36.8 101 25 126/105 (110) Room Air 04/02/23 21:00 36.8 101 19 126/62 (91) Room Air 04/02/23 20:45 36.7 99 15 119/66 (89) Room Air 04/02/23 20:30 36.7 104 22 117/72 (89) Room Air 04/02/23 20:25 36.7 Room Air 04/02/23 20:15 36.7 103 19 123/92 (101) Room Air 04/02/23 20:00 36.7 101 17 117/72 (87) Room Air 04/02/23 19:45 36.7 100 14 126/78 (98) Room Air 04/02/23 19:41 Room Air 04/02/23 19:30 36.7 89 11 143/76 (109) Room Air 04/02/23 19:15 36.7 102 17 129/73 (99) Room Air 04/02/23 19:00 36.7 101 25 126/72 (98) Room Air 04/02/23 19:00 92 04/02/23 18:00 36.6 98 21 105/61 (77) Room Air 04/02/23 17:00 36.8 99 14 119/68 (96) Room Air 04/02/23 16:00 36.5 90 16 115/54 (83) Room Air 04/02/23 16:00 Room Air 04/02/23 15:44 36.4 Room Air 04/02/23 15:13 34.7 72 100 04/02/23 15:00 35.8 86 18 114/72 (101) Room Air 04/02/23 14:00 34.7 72 9 110/62 (84) Room Air 04/02/23 13:46 Room Air 04/02/23 13:23 72 04/02/23 13:15 34.2 68 12 131/58 (82) Room Air 04/02/23 12:50 33.6 71 16 123/76 100 Room Air 04/02/23 10:41 31.8 56 16 94/63 (73) 96 Room Air I & O 04/03/23 07:00 Intake Total 1250 ml Output Total 3800 ml Balance -2550 ml Height & Weight Height: '" Weight: lbs. oz. kg; 27.58 BMI Method: General Appearance: No Apparent Distress, Chronically ill, Obese HEENT: PERRL/EOMI, Pharynx Normal Neck: Non Tender, Supple Respiratory: No Accessory Muscle Use, No Respiratory Distress, Decreased Breath Sounds Cardiovascular: Regular Rate, Rhythm Capillary Refill: Less Than 3 Seconds Extremity: Normal Range of Motion, Non Tender Neurologic/Psychiatric: Alert Results Lab Laboratory Tests 04/02/23 10:55 04/03/23 04:12 Assessment/Plan Assessment/Plan 1 NIELS LORA MD Apr 03, 2023 09:51
--- NOTE | 2023-04-03 10:38 | Diagnostic Imaging Report ---
INDICATION: Pneumonia. Time of Exam: 5:56 AM Correlation is made with prior chest one day earlier. Heart size is stable. Lungs appear clear. No infiltrates are seen. There is no effusion or pneumothorax. There has been improved aeration to left base since yesterday. IMPRESSION: Mild improved aeration to the left base when compared with exam one day earlier. Dictated by: Dictated on workstation # [id number]
[2023-04-03] MEDS: VANCOMYCIN 1 GM/NS 250 ML IVPB IV SCH ×4 (11:17→21:15)
[2023-04-03] MEDS: ENOXAPARIN 40 MG/0.4 ML SYRINGE SC SCH (13:33)
[2023-04-03 15:00] VITALS: BP 142/71
[2023-04-03 15:36] VITALS: BP 140/67
[2023-04-03] MEDS: ACETAMINOPHEN 325 MG TABLET PO PRN (18:26)
[2023-04-03 19:31] VITALS: BP 145/78
[2023-04-03] MEDS: BETHANECHOL 25 MG TABLET PEG SCH (20:10)
[2023-04-03] MEDS: ASPIRIN 81 MG CHEWABLE TABLET PEG SCH (20:10)
[2023-04-03] MEDS: risperiDONE 1 MG TABLET PEG SCH (20:11)
[2023-04-03] MEDS: METOCLOPRAMIDE 10 MG/10 ML PEG SCH (20:11)
[2023-04-03] MEDS ORDERED: LEVETIRACETAM PEG SCH (21:00)
[2023-04-04] VITALS (8 sets, daily range): BP systolic 100–157; BP diastolic 62–89
[2023-04-04] MEDS: MEROPENEM INJECTION 500 MG in NS (IVPB) 100 ML 100 ML IV SCH ×4 (00:01→18:03)
[2023-04-04 05:24] LABS: BASOPHILS % (AUTO) 0 % (0-10); EOSINOPHILS % (AUTO) 1 % (0-10); HEMATOCRIT 34 % (35-52); HEMOGLOBIN 10.7 g/dL (11.5-16.0); LYMPHOCYTES # (AUTO) 1.3 10^3/uL (1.0-4.0); LYMPHOCYTES % (AUTO) 20 % (12-44); MEAN CORPUSCULAR HEMOGLOBIN 32 pg (25-34); MEAN CORPUSCULAR HGB CONC 32 g/dL (32-36); MEAN CORPUSCULAR VOLUME 102 fL (80-99); MONOCYTES # (AUTO) 0.8 10^3/uL (0.0-1.0); MONOCYTES % (AUTO) 12 % (0-12); NEUTROPHILS # (AUTO) 4.2 10^3/uL (1.8-7.8); NEUTROPHILS % (AUTO) 66 % (42-75); PLATELET COUNT 202 10^3/uL (130-400); WHITE BLOOD COUNT 6.3 10^3/uL (4.3-11.0)
[2023-04-04 05:51] LABS: ALBUMIN 3.6 GM/DL (3.2-4.5); BILIRUBIN,TOTAL 0.3 MG/DL (0.1-1.0); CALCIUM 9.9 MG/DL (8.5-10.1); CREATININE SERUM 0.77 MG/DL (0.60-1.30); POTASSIUM 4.4 MMOL/L (3.6-5.0); TOTAL PROTEIN 7.6 GM/DL (6.4-8.2)
[2023-04-04] MEDS: inSUlin ASPART 1 UNIT/0.01 ML (PER UNIT) SC SCH ×4 (06:09→21:19)
[2023-04-04] MEDS: RT-Ipratropium/Albuterol NEB 3 ML VIAL INH SCH ×2 (07:14→20:55)
[2023-04-04] MEDS ORDERED: LORazepam 1 MG TABLET PEG SCH ×4 (09:00→21:00)
[2023-04-04] MEDS ORDERED: QUEtiapine IMMEDIATE RELEASE 200 MG TABLET PEG SCH (09:00)
[2023-04-04] MEDS ORDERED: traZODone 50 MG (DESYREL) TAB PEG SCH (09:00)
[2023-04-04] MEDS ORDERED: TROUGH ORDER-PHARMACY XX NR (09:00)
[2023-04-04] MEDS ORDERED: QUEtiapine IMMEDIATE RELEASE 25 MG TABLET PEG SCH (09:00)
[2023-04-04] MEDS ORDERED: TAMSULOSIN 0.4 MG (FLOMAX) CAP PO SCH (09:00)
--- NOTE | 2023-04-04 09:01 | Progress Note - Hospitalist ---
Subjective HPI/CC On Admission Date Seen by Provider: Apr 04, 2023 Time Seen by Provider: 10:00 Chief complaint: Hypothermia suspect sepsis from pneumonia and UTI HPI: This is a 62-year-old female intellectually delayed patient who receives G- tube feedings and is significantly debilitated due to disability who presented t o the ER with altered mental status. Apparently she was just discharged from [facility] and was placed on empiric antibiotics and remained on Bactrim DS but UA shows 1020 WBCs and chest x-ray shows bilateral atelectasis suspicious for pneumonia so she was placed on meropenem and vancomycin and placed in the ICU with a bear hugger due to hypothermia. Subjective/Events-last exam No major issues Will moved to fourth floor No seizures Restarted home meds Review of Systems General: Fatigue, Malaise Focused Exam Lactate Level 04/02/23 10:55: Lactic Acid Level 1.64 Objective Exam Vital Signs Vital Signs Date Time Temp Pulse Resp B/P (MAP) Pulse Ox O2 Delivery O2 Flow Rate FiO2 04/04/23 20:55 95 Room Air 04/04/23 20:27 37.2 16 105/73 (84) 04/04/23 16:00 84 04/03/23 08:11 2.00 Capillary Refill : Less Than 3 Seconds General Appearance: No Apparent Distress, WD/WN, Chronically ill Respiratory: Lungs Clear, Normal Breath Sounds Cardiovascular: Regular Rate, Rhythm Neurologic/Psychiatric: Alert, Oriented x3 Results/Procedures Lab Laboratory Tests 04/04/23 04:20 Patient resulted labs reviewed. Assessment/Plan Assessment and Plan Assess & Plan/Chief Complaint Assessment: Hypothermia Suspicious for sepsis from UTI and bilateral pneumonia Severe intellectual delay disability Plan: Move to 4th IV antibiotics IV fluid Supportive care KIRT WOODSON DO Apr 04, 2023 09:01
[2023-04-04] MEDS: LevETIRAcetam 500 MG/ 5 ML UDC ORAL SOLN PEG SCH ×3 (09:04→19:49)
[2023-04-04] MEDS: ARIPiprazole 2 MG TABLET PEG SCH (09:05)
[2023-04-04] MEDS: SENNOSIDES 8.6 MG TABLET PO SCH ×2 (09:05→19:51)
[2023-04-04] MEDS: ASPIRIN 81 MG CHEWABLE TABLET PEG SCH ×2 (09:05→19:51)
[2023-04-04] MEDS: FUROSEMIDE 20 MG TABLET PEG SCH (09:05)
[2023-04-04] MEDS: risperiDONE 1 MG TABLET PEG SCH ×2 (09:05→19:50)
[2023-04-04] MEDS: METOCLOPRAMIDE 10 MG/10 ML PEG SCH ×3 (09:05→19:49)
[2023-04-04] MEDS: BETHANECHOL 25 MG TABLET PEG SCH ×3 (09:06→19:50)
[2023-04-04] MEDS: TAMSULOSIN 0.4 MG (FLOMAX) CAP PO SCH (09:06)
[2023-04-04] MEDS: DOCUSATE SODIUM 100 MG CAPSULE PO SCH ×2 (09:06→19:51)
--- NOTE | 2023-04-04 09:18 | Diagnostic Imaging Report ---
INDICATION: Pneumonia COMPARISON: 04/03/2023 TECHNIQUE: Single radiograph of the chest dated 04/04/2023. FINDINGS: The cardiac silhouette is stable. No significant pulmonary vascular congestion. Improved left basilar opacities. The lungs currently appear clear when accounting for patient rotation. No significant pleural effusion. No pneumothorax. No acute osseous abnormality. IMPRESSION: Improved aeration of the lungs with improved and nearly resolved opacities within the left lung base. Dictated by: Dictated on workstation # [id number]
[2023-04-04] MEDS: VANCOMYCIN 1 GM/NS 250 ML IVPB IV SCH ×4 (10:45→22:35)
[2023-04-04] MEDS: ENOXAPARIN 40 MG/0.4 ML SYRINGE SC SCH (13:13)
[2023-04-04] MEDS ORDERED: IBUP-2473 GT (13:56)
[2023-04-04] MEDS ORDERED: CALC-227 GT (13:56)
[2023-04-04] MEDS ORDERED: BAG BALM TOP (13:56)
[2023-04-04] MEDS ORDERED: AMMO225L5 TOP (13:56)
[2023-04-04] MEDS ORDERED: LEVE100S16 GT (13:56)
[2023-04-04] MEDS ORDERED: GUAI237L97 GT (13:56)
[2023-04-04] MEDS ORDERED: HALO15CR2 TOP (13:56)
[2023-04-04] MEDS ORDERED: HYDR453. TP (13:56)
[2023-04-04] MEDS ORDERED: OMEP10SU2 GT (13:56)
[2023-04-04] MEDS ORDERED: MULT9LIQ6 GT (13:56)
[2023-04-04] MEDS ORDERED: BISM262O27 GT (13:56)
[2023-04-04] MEDS ORDERED: SODI100047 GT (13:56)
[2023-04-04] MEDS ORDERED: LACT10SO3 GT (13:56)
[2023-04-04] MEDS ORDERED: ACET160L34 GT (13:56)
[2023-04-04] MEDS ORDERED: CALA177S11 TP (13:56)
[2023-04-04] MEDS ORDERED: POLY17PO6 GT (13:56)
[2023-04-04] MEDS ORDERED: CARB15DR64 OT (13:56)
[2023-04-04] MEDS ORDERED: KETO15CR2 TOP (13:56)
[2023-04-04] MEDS ORDERED: [UNRECOGNIZED DRUG - CODE] TP (13:56)
[2023-04-04] MEDS ORDERED: [UNRECOGNIZED DRUG - CODE] GT (13:56)
[2023-04-04] MEDS ORDERED: BISA-65 GT (13:56)
[2023-04-04] MEDS ORDERED: TR1C15 TP (13:56)
[2023-04-04] MEDS ORDERED: MAG-141 PO (13:56)
[2023-04-04] MEDS ORDERED: DIPH25CA79 PO (13:56)
[2023-04-04] MEDS ORDERED: MINE50OI TP (13:56)
[2023-04-04] MEDS ORDERED: TRH2T GT (13:56)
[2023-04-04] MEDS ORDERED: PSYL0.4C2 GT (13:56)
[2023-04-04] MEDS ORDERED: CALC500T7 GT (13:56)
[2023-04-04] MEDS ORDERED: RISA150S2 SQ (13:56)
[2023-04-04] MEDS ORDERED: CETI-265 GT (13:56)
[2023-04-04] MEDS ORDERED: UREA198C TOP (13:56)
[2023-04-04] MEDS ORDERED: [UNRECOGNIZED DRUG - CODE] GT (13:56)
[2023-04-04] MEDS ORDERED: LOPE-134 PO (13:56)
[2023-04-04] MEDS ORDERED: POTASSIUM CHLORIDE GT (13:56)
[2023-04-04] MEDS ORDERED: SULF-221 PO (13:56)
[2023-04-04] MEDS ORDERED: BISA10SU8 RC (13:56)
[2023-04-04] MEDS ORDERED: POLY15DR27 OU (13:56)
[2023-04-04] MEDS ORDERED: OX05NA15 NSEACH (13:56)
[2023-04-04] MEDS ORDERED: ACET325T38 GT (13:56)
[2023-04-04] MEDS ORDERED: MOM10U GT (14:13)
[2023-04-04] MEDS ORDERED: DIPH103G TP (14:13)
[2023-04-04] MEDS: QUEtiapine IMMEDIATE RELEASE 25 MG TABLET PEG SCH (15:57)
[2023-04-05 04:09] VITALS: BP 144/74
[2023-04-05] MEDS: inSUlin ASPART 1 UNIT/0.01 ML (PER UNIT) SC SCH ×2 (05:30→12:47)
[2023-04-05 05:38] LABS: BASOPHILS % (AUTO) 0 % (0-10); EOSINOPHILS # (AUTO) 0.3 10^3/uL (0.0-0.3); EOSINOPHILS % (AUTO) 3 % (0-10); HEMATOCRIT 32 % (35-52); HEMOGLOBIN 10.2 g/dL (11.5-16.0); LYMPHOCYTES % (AUTO) 25 % (12-44); MEAN CORPUSCULAR HEMOGLOBIN 32 pg (25-34); MEAN CORPUSCULAR HGB CONC 32 g/dL (32-36); MEAN CORPUSCULAR VOLUME 100 fL (80-99); MEAN PLATELET VOLUME 10.3 fL (9.0-12.2); MONOCYTES # (AUTO) 0.8 10^3/uL (0.0-1.0); MONOCYTES % (AUTO) 10 % (0-12); NEUTROPHILS # (AUTO) 4.7 10^3/uL (1.8-7.8); NEUTROPHILS % (AUTO) 60 % (42-75); PLATELET COUNT 194 10^3/uL (130-400); WHITE BLOOD COUNT 7.9 10^3/uL (4.3-11.0)
[2023-04-05] MEDS: MEROPENEM INJECTION 500 MG in NS (IVPB) 100 ML 100 ML IV SCH ×3 (05:40)
[2023-04-05] MEDS: FUROSEMIDE 20 MG TABLET PEG SCH (05:41)
[2023-04-05 05:54] LABS: ALBUMIN 3.5 GM/DL (3.2-4.5); BILIRUBIN,TOTAL 0.3 MG/DL (0.1-1.0); CALCIUM 9.8 MG/DL (8.5-10.1); CREATININE SERUM 0.7 MG/DL (0.60-1.30); MAGNESIUM 1.7 MG/DL (1.6-2.4); TOTAL PROTEIN 7.1 GM/DL (6.4-8.2)
[2023-04-05 07:24] VITALS: BP 128/75
[2023-04-05] MEDS: RT-Ipratropium/Albuterol NEB 3 ML VIAL INH SCH (08:09)
[2023-04-05] MEDS: METOCLOPRAMIDE 10 MG/10 ML PEG SCH (08:15)
[2023-04-05] MEDS: LevETIRAcetam 500 MG/ 5 ML UDC ORAL SOLN PEG SCH (08:16)
[2023-04-05] MEDS: QUEtiapine IMMEDIATE RELEASE 25 MG TABLET PEG SCH (08:19)
[2023-04-05] MEDS: BETHANECHOL 25 MG TABLET PEG SCH (08:20)
[2023-04-05] MEDS: TAMSULOSIN 0.4 MG (FLOMAX) CAP PO SCH (08:20)
[2023-04-05] MEDS: risperiDONE 1 MG TABLET PEG SCH (08:20)
[2023-04-05] MEDS: ARIPiprazole 2 MG TABLET PEG SCH (08:21)
[2023-04-05] MEDS: ASPIRIN 81 MG CHEWABLE TABLET PEG SCH (08:21)
[2023-04-05] MEDS: DOCUSATE SODIUM 100 MG CAPSULE PO SCH (08:35)
[2023-04-05] MEDS: SENNOSIDES 8.6 MG TABLET PO SCH (08:36)
[2023-04-05] MEDS ORDERED: LORazepam 1 MG TABLET PEG SCH (09:00)
[2023-04-05] MEDS: VANCOMYCIN 1 GM/NS 250 ML IVPB IV SCH ×2 (09:41)
[2023-04-05 10:22] VITALS: BP 128/75
[2023-04-05] MEDS ORDERED: CEFDINIR 300 MG CAPSULE PO SCH (11:11)
[2023-04-05] MEDS ORDERED: CEFD300C3 PEG (11:36)
--- NOTE | 2023-04-05 11:37 | Discharge Summary ---
Discharge Summary Hospital Course Was the Problem List Reviewed?: Yes Problems/Dx: (1) Hypothermia Qualifiers: Qualified Codes: T68.XXXA - Hypothermia, initial encounter (2) Urinary tract infection Status: Acute Qualifiers: Qualified Codes: N30.01 - Acute cystitis with hematuria Hospital Course Date of Admission: Apr 02, 2023 at 12:46 Admission Diagnosis : Family Physician/Provider: Date of Discharge: 04/05/23 Discharge Diagnosis: [ ] Hospital Course: Uneventful hospital course after she was admitted for hypothermia requiring broad-spectrum antibiotics and Bear hugger. Patient was ultimately moved down to fourth floor. IV antibiotics transition to PEG tube formulation she regained back to baseline function and she was discharged home. Labs and Pending Lab Test: Laboratory Tests 04/04/23 11:38: Glucometer 131H 04/04/23 21:17: Glucometer 108 04/05/23 05:21: Glucometer 69L, White Blood Count 7.9, Red Blood Count 3.17L, Hemoglobin 10.2L, Hematocrit 32L, Mean Corpuscular Volume 100H, Mean Corpuscular Hemoglobin 32, Mean Corpuscular Hemoglobin Concent 32, Red Cell Distribution Width 14.6H, Platelet Count 194, Mean Platelet Volume 10.3, Immature Granulocyte % (Auto) 1, Neutrophils (%) (Auto) 60, Lymphocytes (%) (Auto) 25, Monocytes (%) (Auto) 10, Eosinophils (%) (Auto) 3, Basophils (%) (Auto) 0, Neutrophils # (Auto) 4.7, Lymphocytes # (Auto) 2.0, Monocytes # (Auto) 0.8, Eosinophils # (Auto) 0.3, Basophils # (Auto) 0.0, Immature Granulocyte # (Auto) 0.1, Sodium Level 144, Potassium Level 4.0, Chloride Level 108H, Carbon Dioxide Level 26, Anion Gap 10, Blood Urea Nitrogen 32H, Creatinine 0.70, Estimat Glomerular Filtration Rate 98, BUN/Creatinine Ratio 46, Glucose Level 72, Calcium Level 9.8, Corrected Calcium 10.2H, Magnesium Level 1.7, Total Bilirubin 0.3, Aspartate Amino Transf (AST/SGOT) 73H, Alanine Aminotransferase (ALT/SGPT) 96H, Alkaline Phosphatase 219H, Total Protein 7.1, Albumin 3.5 04/05/23 05:38: Glucometer 86 Microbiology 04/02/23 MRSA Screen - Final, Complete 04/02/23 Blood Culture - Preliminary, Resulted No growth 04/02/23 Urine Culture - Final, Complete Escherichia coli Home Meds Active Cefdinir 300 Mg Capsule 300 Mg PEG BID Reported Milk of Magnesia (Magnesium Hydroxide) 2,400 Mg/10 Ml Oral.susp 30 Ml GT DAILY PRN Benadryl Itch Stopping (Diphenhydramine HCl) 2 % Gel..ml. 1 Applic TP BID Bactrim Ds Tablet (Sulfamethoxazole/Trimethoprim) 800 Mg-160 Mg Tablet 1 Ea PO BID FILLED 03-31-2023 #7 Urea 40 % Cream..g. 1 Applic TOP 1400 APPLY TO HANDS Tylenol (Acetaminophen) 325 Mg Tablet 650 Mg GT Q4 -6H PRN Tums (Calcium Carbonate) 200 Mg Calcium (500 Mg) Tab.chew 200-400 Mg GT Q2- 4H PRN Trihexyphenidyl HCl 2 Mg Tablet 2 Mg GT BID Triamcinolone Acetonide 0.1% Cream (Triamcinolone Acet) 0.1 % Cr 1 Applic TP BID APPLY TO HANDS Sodium Chloride 1,000 Mg Tablet.regulo 1 Gm GT DAILY Skyrizi (Risankizumab-Rzaa) 150 Mg/Ml Syringe 150 Mg SQ EVERY 12 WEEKS Robitussin Cough-Chest Dm Liq (Guaifenesin/Dextromethorphan) 50 Mg-5 Mg/5 Ml Liquid 30 Ml GT Q4H PRN Pepto-Bismol (Bismuth Subsalicylate) 262 Mg/15 Ml Oral.susp 30 Ml GT UD PRN MDD 240ML Prilosec (Omeprazole Magnesium) 10 Mg Suspdr.pkt 20 Mg GT DAILY DILUTE 2 PACKS IN 15ML OF WATER [Potassium Chloride] 10% Soln 7.5 Ml GT DAILY Miralax (Polyethylene Glycol 3350) 17 Gram Powd.pack 17 Gm GT DAILY Nasal [place] (Oxymetazoline HCl) 0.05 % [place] 2 Sprays NSEACH UD PRN Mylanta Maximum Strength Liq (Mag Hydrox/Aluminum Hyd/Simeth) 400 Mg-400 Mg-40 Mg/5 Ml Oral.susp 10-20 Ml PO TID PRN MDD 60ML Multivitamin Liquid (Multivit &Minerals/Ferrous Fum) 9 Mg Iron/15 Ml Liquid 15 Ml GT DAILY Ibuprofen 200 Mg Tablet 400 Mg GT Q4- 6H PRN Metamucil (Psyllium Husk) 0.4 Gram Capsule 2-5 Ea GT QID PRN Melatonin 2.5 Mg/10 Ml Liquid 40 Ml GT HS Keppra (Levetiracetam) 100 Mg/Ml Solution 10 Ml GT TID Ketoconazole 2 % Cream..g. 1 Applic TOP BID APPLY TO HANDS Kerasal Fungal Nail Renew Soln (Urea/Lactic Acid/Propylene Gly) 10 Ml Solution 1 Applic TP HS Imodium A-D (Loperamide HCl) 2 Mg Tablet 2-4 Mg PO UD PRN MDD 8MG TAKE 2 TABS AFTER FIRST LOOSE STOOL AND THEN 1 AFTER EACH SUBSEQUENT LOOSE STOOOL Hydrocortisone 1 % Cream..g. 1 Applic TP QID PRN Halobetasol Propionate 0.05 % Cream..g. 1 Applic TOP BID APPLY TO HANDS AND THEN COVER WITH THICK MOISTURIZER USE FOR 7 DAYS ON AND 7 DAYS OFF Ear Wax Drops (Carbamide Peroxide) 6.5 % Drops 5 Drops OT DAILY Deena-Tussin Dm Liquid (Guaifenesin/D-Methorphan Hb) 100 Mg-10 Mg/5 Ml Liquid 10 Ml GT Q6H PRN Dulcolax (Bisacodyl) 5 Mg Tablet.dr 5-10 Mg GT UD PRN Calamine Lotion (Calamine/Zinc Oxide) 8 %-8 % Lotion 1 Applic TP UD PRN Lactulose 10 Gram/15 Ml Solution 30 Ml GT BID Cetirizine HCl 1 Mg/Ml Solution 10 Ml GT DAILY Calcium 250+D Tablet (Calcium Carbonate/Vitamin D3) 250-3.125 Tablet 1 Each GT TID [Bag [place]] 1 Applic TOP DAILY PRN APPLY TO FEET AND COVER WITH SOCKS Bisacodyl 10 Mg Supp.rect 10 Mg RC Q6H PRN Benadryl (Diphenhydramine HCl) 25 Mg Capsule 25 Mg PO Q4H PRN Artificial Tears 1.4 % Soln 1-2 Drops OU Q6H PRN Aquaphor Healing Ointment (Mineral Oil/Hydrophil Petrolat) 50 Gm Oint...g. 1 Applic TP DAILY APPLY TO FEET Ammonium Lactate 12 % Lotion 1 Applic TOP DAILY APPLY TO FEET AFTER SHOWER Children's Acetaminophen (Acetaminophen) 160 Mg/5 Ml Liquid 10.15 Ml GT Q6H PRN Flomax (Tamsulosin HCl) 0.4 Mg Cap 0.4 Mg GT DAILY Ativan (Lorazepam) 1 Mg Tablet 0.5 Mg GT DAILY TAKES OF A 1MG TAB Trazodone HCl 50 Mg Tablet 75 Mg GT HS TAKES 1 & (50MG) TABS Tizanidine HCl 4 Mg Tablet 4 Mg GT BID Risperidone 1 Mg Tablet 1 Mg GT BID Quetiapine Fumarate 50 Mg Tablet 50 Mg GT 0800,1400 Quetiapine Fumarate 200 Mg Tablet 500 Mg GT HS TAKES 2 & (200MG) TABS Ativan (Lorazepam) 1 Mg Tablet 1 Mg GT HS Metoclopramide HCl 5 Mg/5 Ml Syrp 10 Ml GT TID Lisinopril 20 Mg Tablet 20 Mg GT DAILY CRUSH TAB Furosemide 10 Mg/Ml Soln 2 Ml GT DAILY Aspirin 81 Mg Tab.chew 324 Mg GT BID CRUSH 4 (81MG) TABS AND DISSOLVE IN 120ML OF LIQUID Aripiprazole 2 Mg Tablet 2 Mg GT DAILY Bethanechol Chloride 25 Mg Tablet 50 Mg GT TID TAKES 2 (25MG) TABS Assessment/Pt Instructions PCP in 1 week Discharge Planning: <30 minutes discharge planning Discharge Instructions Discharge Diet: Tube Feeding Discharge Physical Examination Vital Signs Vital Signs Date Time Temp Pulse Resp B/P (MAP) Pulse Ox O2 Delivery O2 Flow Rate FiO2 04/05/23 10:22 36.0 87 94 21 04/05/23 08:09 Room Air 0.00 04/05/23 07:24 18 128/75 (92) General Appearance: No Apparent Distress, WD/WN Allergies: Coded Allergies: No Known Drug Allergies (Unverified , 04/02/23) Discharge Summary Date of Admission Apr 02, 2023 at 12:46 Date of Discharge Discharge Date: Apr 05, 2023 Admission Diagnosis Assessment: Hypothermia Suspicious for sepsis from UTI and bilateral pneumonia Severe intellectual delay disability Plan: ICU IV antibiotics IV fluid Supportive care ICU consult Discharge Diagnosis Assessment: Hypothermia Suspicious for sepsis from UTI and bilateral pneumonia Severe intellectual delay disability Plan: Move to [facility] IV antibiotics IV fluid Supportive care KIRT WOODSON DO Apr 05, 2023 11:37
[2023-04-05] MEDS ORDERED: NS IV SCH (14:00)
[2023-04-05] MEDS ORDERED: CEFAZOLIN IV SCH (14:00)
[2023-04-05 14:48] VITALS: BP 128/75
[2023-04-05] MEDS ORDERED: traZODone 50 MG (DESYREL) TAB PEG SCH (21:00)
[2023-04-05] MEDS ORDERED: QUEtiapine IMMEDIATE RELEASE 200 MG TABLET PEG SCH (21:00)
== END 2023-04-05 14:45 | disposition home or self-care (01) | DRG 871 ==
LOC: EDUNIT# 10:32 → ER 10:37 → ICU 12:46 → 4TH 04-04 20:29
PROVIDERS: ADMIT Internal Medicine; ATTEND Internal Medicine
DX: A41.9 Sepsis, unspecified organism (principal); J15.9 Unspecified bacterial pneumonia; N39.0 Urinary tract infection, site not specified; F79 Unspecified intellectual disabilities; I25.10 Atherosclerotic heart disease of native coronary artery without angina pectoris; I10 Essential (primary) hypertension; K21.9 Gastro-esophageal reflux disease without esophagitis; F41.9 Anxiety disorder, unspecified; D64.9 Anemia, unspecified
CPT/HCPCS: 36415; 51702; 71045; 80053; 80202; 81000; 82947; 83605; 83735; 84100; 84443; 85025; 85610; 85730; 86141; 87040; 87077; 87081; 87088; 87186; 94640; 94760